=== PATIENT | male | born 1970 ===

== ENCOUNTER 2016-06-14 10:35 | Emergency (ER) | payer OTHER ==
--- NOTE | 2016-06-14 11:13 | UC ---
FLU HPI - HPI Summary HPI Summary: day 2 of head aches body aches and chills - History of Current Complaint Hx Obtained From: Patient Onset/Duration: Sudden Onset, Lasting Days - 2, Still Present Severity Currently: Moderate Severity Initially: Moderate Pain Intensity: 5 Pain Scale Used: 0-10 Numeric Associated Signs & Symptoms: Positive: Myalgia, Headache <Sisi Cherry - Last Filed: 06/14/16 12:14> <Danette Coates - Last Filed: 06/14/16 13:50> - History of Current Complaint Chief Complaint: UCGeneralIllness Stated Complaint: ACHY, FIGUEROA Time Seen by Provider: 06/14/16 11:05 - Allergy/Home Medications Allergies/Adverse Reactions: Allergies Allergy/AdvReac Type Severity Reaction Status Date / Time No Known Allergies Allergy Verified 06/14/16 11:05 Home Medications: Home Medications Fluticasone-Salmeterol 250-50* [Advair Diskus 250-50*] 1 puff INH BID 06/14/16 [ History Confirmed 06/14/16] Ibuprofen TAB* [Advil TAB*] 400 mg PO TID PRN 06/14/16 [History Confirmed ] guaiFENesin ER TAB [Mucinex*] 600 mg PO DAILY PRN 06/14/16 [History Confirmed ] PMH/Surg Hx/FS Hx/Imm Hx Previously Healthy: No Endocrine History Of: Denies: Diabetes, Thyroid Disease Cardiovascular History Of: Denies: Cardiac Disorders, Hypertension Respiratory History Of: Reports: Asthma - Surgical History Surgical History: None - Family History Known Family History: Positive: Unknown Family History: unsure about family history of medical illness - Social History Occupation: Employed Full-time Lives: With Family Alcohol Use: Occasionally Substance Use Type: None Smoking Status (MU): Never Smoked Tobacco <Sisi Cherry - Last Filed: 06/14/16 12:14> Review of Systems Constitutional: Chills, Fatigue Skin: Negative Eyes: Negative ENT: Negative Respiratory: Negative Cardiovascular: Negative Gastrointestinal: Negative Genitourinary: Negative Motor: Negative Neurovascular: Negative Musculoskeletal: Arthralgia, Myalgia Neurological: Negative Psychological: Negative All Other Systems Reviewed And Are Negative: Yes <Sisi Cherry - Last Filed: 06/14/16 12:14> Physical Exam Triage Information Reviewed: Yes Appearance: Well-Appearing, No Pain Distress, Well-Nourished Vital Signs: Initial Vital Signs Temp 98.7 F 06/14/16 11:00 Pulse 75 06/14/16 11:00 Resp 18 06/14/16 11:00 BP 110/62 06/14/16 11:00 Pulse Ox 97 06/14/16 11:00 Vital Signs Reviewed: Yes Eye Exam: Normal Eyes: Positive: Conjunctiva Clear ENT Exam: Normal ENT: Positive: Normal ENT inspection, Hearing grossly normal, Pharynx normal, Nasal congestion, Nasal drainage, TMs normal. Negative: Tonsillar swelling, Tonsillar exudate, Trismus, Muffled/hoarse voice Dental Exam: Normal Neck exam: Normal Neck: Positive: Supple, Nontender, No Lymphadenopathy Respiratory Exam: Normal Respiratory: Positive: Chest non-tender, Lungs clear, Normal breath sounds, No respiratory distress, No accessory muscle use Cardiovascular Exam: Normal Cardiovascular: Positive: RRR, No Murmur, Pulses Normal, Brisk Capillary Refill Abdominal Exam: Normal Abdomen Description: Positive: Nontender, Soft Bowel Sounds: Positive: Present Musculoskeletal Exam: Normal Musculoskeletal: Positive: Strength Intact Neurological Exam: Normal Neurological: Positive: Alert, Muscle Tone Normal Psychological Exam: Normal Psychological: Positive: Normal Response To Family Skin Exam: Normal <Sisi Cherry - Last Filed: 06/14/16 12:14> Vital Signs: Initial Vital Signs Temp 98.7 F 06/14/16 11:00 Pulse 75 06/14/16 11:00 Resp 18 06/14/16 11:00 BP 110/62 06/14/16 11:00 Pulse Ox 97 06/14/16 11:00 <Danette Coates - Last Filed: 06/14/16 13:50> Diagnostics - Laboratory Diagnostic Studies Completed/Ordered: influenza A (+) <Sisi Cherry - Last Filed: 06/14/16 12:14> Flu Course/Dx - Course Course Of Treatment: Tamiflu, rest, ibuprofen, tylenol, physican referral service - Differential Dx/Diagnosis Differential Diagnosis/HQI/PQRI: Influenza, RSV, Upper Respiratory Infection Provider Diagnoses: Influenza A, Chronic Asthma <Sisi Cherry - Last Filed: 06/14/16 12:14> Discharge <Sisi Cherry - Last Filed: 06/14/16 12:14> <Danette Coates - Last Filed: 06/14/16 13:50> - Discharge Plan Condition: Stable Disposition: HOME Prescriptions: Oseltamivir Phosphate [Tamiflu] 75 mg PO BID #10 cap Patient Education Materials: Oseltamivir (By mouth), Influenza (ED) Forms: *Work Release Referrals: [facility] [Outside] - If Needed No Primary Care Phys,NOPCP [Primary Care Provider] - Attestation Statement User Type: Provider - I was available for consult. This patient was seen by the [facility]. The patient was not presented to, seen by, or examined by me. <Danette Coates - Last Filed: 06/14/16 13:50>
== END 2016-06-14 11:48 | disposition home or self-care (01) ==
LOC: UCEAST 10:35
DX: J10.1 Influenza due to other identified influenza virus with other respiratory manifestations (principal); J45.909 Unspecified asthma, uncomplicated
CPT/HCPCS: 87502; 87651; 99201; G0463